=== PATIENT | female | born 1980 | race Caucasian/White ===

== ENCOUNTER 2021-06-25 19:56 | Emergency (ER) | payer BC ==
[~2021-06-25] VITALS: Ht 160 cm; Wt 56.7 kg
== END 2021-06-25 21:22 | disposition home or self-care (01) ==
LOC: ER1 19:56
DX: U07.1 COVID-19 (principal); Z23 Encounter for immunization; Z88.1 Allergy status to other antibiotic agents; Z88.2 Allergy status to sulfonamides
CPT/HCPCS: 96374; 99283; J2930; M0245